=== PATIENT | male | born 1960 | race Caucasian/White ===

== ENCOUNTER → 2019-01-24 | Outpatient (CLI) | payer BC ==
[2019-01-24 16:52] LABS: BASO # 0.1 10*3/uL (0.0-0.1); BASO % 0.7 % (0.0-1.0); EOS # 0.2 10*3/uL (0.0-0.4); EOS % 1.6 % (1.0-4.0); HEMATOCRIT 45.5 % (42.0-52.0); LYMPH # 2.3 10*3/uL (1.3-4.4); LYMPH % 23.3 % (27.0-41.0); MEAN CORPUSCULAR HGB 30.7 pg (27.0-31.0); MEAN PLATELET VOLUME 10.4 fl (9.6-12.3); MONO # 0.7 10*3/uL (0.1-1.0); MONO % 7.4 % (3.0-9.0); NEUT # 6.4 10*3/uL (2.3-7.9); NEUT % 65.5 % (47.0-73.0); PLATELET COUNT AUTOMATED 216 10*3/uL (130-400); RED BLOOD COUNT 4.89 10*6/uL (4.50-5.90); RED CELL DISTRI WIDTH 12.5 % (0-14.5); WHITE BLOOD COUNT 9.8 10*3/uL (4.8-10.8)
[2019-01-24 18:42] LABS: BF LYMPHOCYTES 10 %; BF MONOCYTES 20 %; BF NEUTROPHILS 70 %
[2019-01-24 18:43] LABS: BODY FLUID WBC 20625 /uL
[2019-01-25 07:05] LABS: HEPATITIS B SURFACE AG Negative (Negative); HEPATITIS C VIRUS ANTIBODY <0.1 s/co (0.0-0.9)
[2019-01-25 08:07] LABS: RHEUMATOID ARTHRITIS FACTOR 91.1 IU/mL (0.0-13.9)
[2019-01-25 12:10] LABS: ANTI-RNP ANTIBODIES 0.4 AI (0.0-0.9)
[2019-01-25 22:05] LABS: CCP ANTIBODIES IGG/IGA >250 units (0-19)
[2019-01-26 04:07] LABS: PTT-LA 29.3 sec (0.0-51.9)
[2019-01-26 08:10] LABS: DVVTMIXRFX CHG; LUPUS DRVVT 52.6 sec (0.0-47.0)
[2019-01-26 11:06] LABS: LUPUS REFLEX INTERPRETATION Comment: (.)
[2019-01-26 14:06] LABS: ACID FAST SPEC PROCESSING Direct Inoculation (.)
[2019-01-29 13:09] LABS: HLA-B27 ANTIGEN Negative (.)
[2019-03-08 10:09] LABS: ACID FAST CULTURE Negative (.)
== END | disposition home or self-care (01) ==
LOC: LAB 16:23
PROVIDERS: Orthopaedic Surgery
DX: M25.50 Pain in unspecified joint (principal); M25.60 Stiffness of unspecified joint, not elsewhere classified

== ENCOUNTER → 2019-01-25 | Outpatient (CLI) | payer BC ==
[2019-01-25 09:24] LABS: URIC ACID 5.9 mg/dL (3.5-7.2)
== END | disposition home or self-care (01) ==
LOC: LAB 08:02
PROVIDERS: Orthopaedic Surgery
DX: M25.50 Pain in unspecified joint (principal); M25.60 Stiffness of unspecified joint, not elsewhere classified